=== PATIENT | female | born 1975 | race Caucasian/White ===

== ENCOUNTER → 2017-04-16 | Outpatient (CLI) | payer OTHER ==
--- NOTE | 2017-04-16 16:32 | CT ---
EXAMINATION TYPE: CT abdomen pelvis wo con DATE OF EXAM: 04/16/2017 COMPARISON: NONE HISTORY: 42-year-old female with Left side flank pain and hematuria. CT DLP: 1020 mGycm. Automated exposure control for dose reduction was used. TECHNIQUE: Contiguous axial scanning of the abdomen and pelvis without IV contrast. Coronal and sagit moreno reconstructions performed. FINDINGS: Heart is normal size without pericardial effusion. Lung bases clear without pleural effusion. Strandy inferior lingular atelectasis. Liver is enlarged measuring 20.1 cm craniocaudal with diffuse low-attenuation. Tiny 8 mm hypodensity left liver lobe suggestive of a cyst and also at the gallbladder fossa measuring 1.2 cm. Gallbladder surgically absent. Adrenal glands, spleen, and pancreas show no gross abnormality by noncontrast CT. A couple punctate 2 mm calculi lower pole right kidney. No hydronephrosis here. Subcentimeter hypode nsity lateral right kidney too small fractured CT characterization, probable cyst. However, there is mild hydronephrosis on the left secondary to a 4 x 6 mm proximal left ureteral calc ulus. No dilated small bowel, free fluid, or free air. No mesenteric or retroperitoneal lymphadenopathy. Normal appendix. No significant stool burden. No pericolonic inflammatory change. Bladder is urine distended. Uterus and both ovaries are visualized. No abnormal fluid collection in t he pelvis or pelvic lymphadenopathy. Bones: No osseous destructive process. IMPRESSION: 1. A 6 x 4 mm calculus at the proximal left ureter with mild obstructive uropathy. 2. A couple punctate 2 mm nonobstructive calculi in the right kidney. 3. Hepatomegaly (20.1 cm) with marked hepatic steatosis.
== END | disposition home or self-care (01) ==
LOC: RADCTMAIN 15:28
PROVIDERS: ATTEND Family Medicine
DX: N20.2 Calculus of kidney with calculus of ureter (principal); N13.9 Obstructive and reflux uropathy, unspecified; K76.0 Fatty (change of) liver, not elsewhere classified; R16.0 Hepatomegaly, not elsewhere classified
CPT/HCPCS: 74176